=== PATIENT | female | born 1995 | race African-American/Black ===

== ENCOUNTER 2019-04-08 09:08 | Emergency (ER) | payer MEDICAID ==
[~2019-04-08] VITALS: Ht 175.3 cm; Wt 69.2 kg
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
[2019-04-08 10:17] LABS: BASOPHILS # (AUTO) 0.01 x10^3/uL (0-0.1); BASOPHILS % (AUTO) 0 % (0-1); EOSINOPHILS # (AUTO) 0.03 x10^3/uL (0-0.4); EOSINOPHILS % (AUTO) 1 % (1-7); LYMPHOCYTES # (AUTO) 1.63 x10^3/uL (1-3.4); LYMPHOCYTES % (AUTO) 40 % (22-44); MD NO; MEAN CORPUSCULAR HEMOGLOBIN 27.5 pg (27.0-34.8); MEAN CORPUSCULAR HGB CONC 32.4 g/dL (32.4-35.8); MEAN CORPUSCULAR VOLUME 84.9 fL (80-100); MEAN PLATELET VOLUME 9.2 fL (7.4-10.4); MONOCYTES # (AUTO) 0.37 x10^3/uL (0.2-0.8); MONOCYTES % (AUTO) 9 % (2-9); NEUTROPHILS # (AUTO) 1.99 x10^3/uL (1.8-6.8); NEUTROPHILS % (AUTO) 49 % (42-75); PLATELET COUNT 253 x10^3/uL (130-400); RED BLOOD COUNT 3.94 x10^6/uL (3.82-5.3); RED CELL DISTRIBUTION WIDTH 14.1 % (9.6-15.2)
[2019-04-08 10:23] LABS: ALBUMIN 2.9 g/dL (3.4-5.0); ANION GAP 5 mmol/L (5-15); CALCIUM 8.4 mg/dL (8.5-10.1); CHLORIDE 108 mmol/L (98-107); CREATININE 0.45 mg/dL (0.55-1.02)
--- NOTE | 2019-04-08 10:23 | NUR ---
pt to us
[2019-04-08 10:53] LABS: MICROSCOPIC NOT IND
[2019-04-08 10:57] LABS: CULTURE INDICATED? NO
--- NOTE | 2019-04-08 10:57 | NUR ---
MD AT BEDSIDE FOR PELVIC EXAM
[2019-04-08 11:01] VITALS: BP 100/54
--- NOTE | 2019-04-08 11:11 | NUR ---
PT GIVEN JUICE AND GRAHM CRACKERS
[2019-04-08 11:45] LABS: CLUE CELLS PRESENT (NONE SEEN); WET PREP WBCS MODERATE (FEW)
--- NOTE | 2019-04-08 12:19 | NUR ---
PT GIVEN RX AND DC PAPERWORK
== END 2019-04-08 12:21 | disposition home or self-care (01) ==
LOC: ED 11:55
DX: O23.592 Infection of other part of genital tract in pregnancy, second trimester (principal); B96.89 Other specified bacterial agents as the cause of diseases classified elsewhere; Z3A.15 15 weeks gestation of pregnancy
CPT/HCPCS: 36415; 76815; 80048; 81003; 82040; 84702; 85025; 87210; 87491; 87591; 87808; 99284

== ENCOUNTER 2019-04-17 09:39 | Emergency (ER) | payer MEDICAID ==
[~2019-04-17] VITALS: Ht 175.3 cm; Wt 68.0 kg
[2019-04-17 09:41] VITALS: BP 95/69
[2019-04-17] MEDS ORDERED: AZITHROMYCIN 500 MG TABLET PO ONE (10:30)
[2019-04-17] MEDS ORDERED: CEFTRIAXONE 250 MG IM ONE (10:30)
== END 2019-04-17 10:23 | disposition home or self-care (01) ==
LOC: ED 10:10
DX: O26.893 Other specified pregnancy related conditions, third trimester (principal); Z3A.18 18 weeks gestation of pregnancy
CPT/HCPCS: 96372; 99283; J0696

== ENCOUNTER 2019-05-09 19:50 | Outpatient (CLI) | payer MEDICAID ==
[~2019-05-09] VITALS: Ht 175.3 cm; Wt 77.2 kg
[2019-05-09 20:24] LABS: CULTURE INDICATED? YES; MICROSCOPIC INDICATED
[2019-05-09 20:29] LABS: AMPHETAMINE SCREEN, URINE Negative (Negative); BARBITURATE SCREEN, URINE Negative (Negative); BENZODIAZEPINE SCREEN, URINE Negative (Negative); CANNABINOID SCREEN, URINE Positive (Negative); COCAINE SCREEN, URINE Negative (Negative); METHADONE SCREEN, URINE Negative (Negative); OPIATE SCREEN, URINE Negative (Negative)
== END 2019-05-09 21:20 | disposition home or self-care (01) ==
LOC: LDOP 19:50
PROVIDERS: ATTEND Student in an Organized Health Care Education/Training Program
DX: O36.8120 Decreased fetal movements, second trimester, not applicable or unspecified (principal); Z3A.19 19 weeks gestation of pregnancy
CPT/HCPCS: 80307; 81001; 87086; 99211; G0463

== ENCOUNTER 2019-06-11 16:29 | Emergency (ER) | payer MEDICAID ==
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
== END 2019-06-11 16:43 ==
LOC: ED 16:37
DX: R68.89 Other general symptoms and signs (principal); Z53.21 Procedure and treatment not carried out due to patient leaving prior to being seen by health care provider

== ENCOUNTER 2019-06-23 12:21 | Outpatient (CLI) | payer MEDICAID ==
[~2019-06-23] VITALS: Ht 172.7 cm; Wt 77.2 kg
[2019-06-23 13:29] LABS: MICROSCOPIC INDICATED
[2019-06-23 13:30] LABS: AMPHETAMINE SCREEN, URINE Negative (Negative); BARBITURATE SCREEN, URINE Negative (Negative); BENZODIAZEPINE SCREEN, URINE Negative (Negative); CANNABINOID SCREEN, URINE Positive (Negative); COCAINE SCREEN, URINE Negative (Negative); METHADONE SCREEN, URINE Negative (Negative); OPIATE SCREEN, URINE Negative (Negative)
[2019-06-23 14:57] LABS: MEAN CORPUSCULAR HGB CONC 32.5 g/dL (32.4-35.8); MEAN CORPUSCULAR VOLUME 82.9 fL (80-100); MEAN PLATELET VOLUME 9.7 fL (7.4-10.4); PLATELET COUNT 291 x10^3/uL (130-400); RED BLOOD COUNT 4.08 x10^6/uL (3.82-5.3); RED CELL DISTRIBUTION WIDTH 13.8 % (9.6-15.2)
== END 2019-06-23 14:40 | disposition home or self-care (01) ==
LOC: LDOP 12:21
PROVIDERS: ATTEND Obstetrics & Gynecology
DX: O46.92 Antepartum hemorrhage, unspecified, second trimester (principal); Z3A.25 25 weeks gestation of pregnancy
CPT/HCPCS: 36415; 80307; 81001; 85027; 86592; 86762; 86850; 86900; 87086; 87340; 87806; 99211; G0463; G0475

== ENCOUNTER 2019-07-27 19:08 | Emergency (ER) | payer MEDICAID ==
[~2019-07-27] VITALS: Ht 175.3 cm; Wt 65.0 kg
[2019-07-27 19:27] VITALS: BP 97/63
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
--- NOTE | 2019-07-27 19:50 | NUR ---
CALLED TO L&D AND SPOKE WITH GRACIE MCGREGOR. PER MECHE MARSH STATES WE NEED TO ORDER AN US IN ED AND GO FROM THERE. PT. AMBULATORY TO X-RAY AT THIS TIME. Addendum: 07/27/19 at 2045 by JONES SPOKE WITH GRACIE LING (NOT MECHE)
[2019-07-27 20:07] LABS: RAPID INFLUENZA A Negative (Negative); RAPID INFLUENZA B Negative (Negative)
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
--- NOTE | 2019-07-27 21:05 | NUR ---
PT. BACK FROM US. TECH TRANSPORTING TO L&D, L&D AWARE.
== END 2019-07-27 21:07 | disposition home or self-care (01) ==
LOC: ED 21:00
DX: O99.513 Diseases of the respiratory system complicating pregnancy, third trimester (principal); R10.30 Lower abdominal pain, unspecified; Z3A.31 31 weeks gestation of pregnancy
CPT/HCPCS: 71046; 76815; 87400; 99285

== ENCOUNTER 2019-07-27 21:15 | Outpatient (CLI) | payer MEDICAID ==
[~2019-07-27] VITALS: Ht 175.3 cm; Wt 77.5 kg
[2019-07-27 22:18] LABS: MICROSCOPIC INDICATED
[2019-07-27 22:23] LABS: AMPHETAMINE SCREEN, URINE Negative (Negative); BARBITURATE SCREEN, URINE Negative (Negative); BENZODIAZEPINE SCREEN, URINE Negative (Negative); CANNABINOID SCREEN, URINE Negative (Negative); COCAINE SCREEN, URINE Negative (Negative); METHADONE SCREEN, URINE Negative (Negative); OPIATE SCREEN, URINE Negative (Negative)
== END 2019-07-27 23:00 | disposition home or self-care (01) ==
LOC: LDOP 21:15
PROVIDERS: ATTEND Obstetrics & Gynecology
DX: O26.892 Other specified pregnancy related conditions, second trimester (principal); R10.9 Unspecified abdominal pain; M54.5 Low back pain; Z3A.24 24 weeks gestation of pregnancy
CPT/HCPCS: 59025; 80307; 81001; 87086; 87491; 87591; 99211; G0463

== ENCOUNTER 2019-07-31 14:00 | Emergency (ER) | payer MEDICAID ==
[~2019-07-31] VITALS: Ht 175.3 cm; Wt 76.0 kg
[2019-07-31 14:06] VITALS: BP 90/39
== END 2019-07-31 14:40 | disposition home or self-care (01) ==
LOC: ED 14:22
DX: O26.891 Other specified pregnancy related conditions, first trimester (principal); J00 Acute nasopharyngitis [common cold]; R05 Cough; R51 Headache; Z3A.01 Less than 8 weeks gestation of pregnancy
CPT/HCPCS: 99282

== ENCOUNTER 2019-08-18 00:57 | Observation (INO) | payer MEDICAID ==
[~2019-08-18] VITALS: Ht 175.3 cm; Wt 82.0 kg
[2019-08-18] MEDS ORDERED: PENICILLIN GK 5,000,000 UNITS in DEXTROSE 5% 100 ML IV ONE (01:30)
[2019-08-18] MEDS ORDERED: TERBUTALINE 1 MG/ML, 1ML SQ ONE (01:30)
[2019-08-18] MEDS ORDERED: LACTATED RINGERS 1,000 ML IV SCH (01:30)
[2019-08-18] MEDS ORDERED: TERBUTALINE 1 MG/ML, 1ML ONE (01:32)
[2019-08-18 01:36] LABS: MICROSCOPIC INDICATED
[2019-08-18 01:42] LABS: AMPHETAMINE SCREEN, URINE Negative (Negative); BARBITURATE SCREEN, URINE Negative (Negative); BENZODIAZEPINE SCREEN, URINE Negative (Negative); CANNABINOID SCREEN, URINE Negative (Negative); COCAINE SCREEN, URINE Negative (Negative); METHADONE SCREEN, URINE Negative (Negative); OPIATE SCREEN, URINE Negative (Negative)
[2019-08-18] MEDS ORDERED: OXYTOCIN 30U/ 0.9% NaCL 500ML 500 ML IV ONE (02:09)
[2019-08-18] MEDS ORDERED: D5%-LACTATED RINGERS 1,000 ML IV SCH (02:09)
[2019-08-18] MEDS ORDERED: OXYTOCIN 30U/ 0.9% NaCL 500ML 500 ML ONE (02:09)
[2019-08-18] MEDS ORDERED: MISOPROSTOL 200 MCG TABLET ONE (02:10)
[2019-08-18] MEDS ORDERED: LIDOCAINE 1%, 20ML ONE (02:10)
[2019-08-18] MEDS ORDERED: TERBUTALINE 1 MG/ML, 1ML IVPush PRN (02:30)
[2019-08-18] MEDS ORDERED: FENTANYL PF 100 MCG/2ML IV PRN (02:30)
[2019-08-18] MEDS ORDERED: FENTANYL PF 100 MCG/2ML IVPush PRN (02:30)
[2019-08-18] MEDS ORDERED: CALCIUM CARBONATE 500 MG TAB.CHEW PO PRN (02:30)
[2019-08-18] MEDS ORDERED: ONDANSETRON 2MG/ML, 2ML IVPush PRN (02:30)
[2019-08-18] MEDS ORDERED: TERBUTALINE 1 MG/ML, 1ML SQ PRN (02:30)
[2019-08-18 02:49] LABS: MEAN CORPUSCULAR HGB CONC 31.9 g/dL (32.4-35.8); MEAN CORPUSCULAR VOLUME 81.6 fL (80-100); MEAN PLATELET VOLUME 10.9 fL (7.4-10.4); PLATELET COUNT 240 x10^3/uL (130-400); RED BLOOD COUNT 3.74 x10^6/uL (3.82-5.3); RED CELL DISTRIBUTION WIDTH 17.3 % (9.6-15.2)
[2019-08-18 02:57] LABS: ANISOCYTOSIS 1+; BASOPHILS # (AUTO) 0.06 x10^3/uL (0-0.1); BASOPHILS % (AUTO) 1 % (0-1); EOSINOPHILS # (AUTO) 0.04 x10^3/uL (0-0.4); EOSINOPHILS % (AUTO) 1 % (1-7); LYMPHOCYTES # (AUTO) 3.13 x10^3/uL (1-3.4); LYMPHOCYTES % (AUTO) 38 % (22-44); MD MORPH REVIEW ONLY; MONOCYTES # (AUTO) 0.77 x10^3/uL (0.2-0.8); MONOCYTES % (AUTO) 9 % (2-9); NEUTROPHILS # (AUTO) 4.26 x10^3/uL (1.8-6.8); NEUTROPHILS % (AUTO) 52 % (42-75); POLYCHROMASIA 1+
[2019-08-18 02:58] LABS: <PLATELET ESTIMATE> ADEQUATE; LARGE PLATELETS 1+
[2019-08-18] MEDS ORDERED: PENICILLIN GK 2,500,000 UNITS in DEXTROSE 5% 100 ML IVPB SCH (06:30)
[2019-08-18] MEDS ORDERED: BETAMETHASONE 6 MG/ML, 5ML IM ONE (08:13)
[2019-08-18] MEDS: BETAMETHASONE 6 MG/ML, 5ML IM SCH (08:25)
[2019-08-19] MEDS: BETAMETHASONE 6 MG/ML, 5ML IM SCH (07:35)
[2019-08-19] MEDS ORDERED: SODIUM CHLORIDE FLUSH 10ML SYR IVF SCH (09:00)
== END 2019-08-19 08:59 | disposition home or self-care (01) ==
LOC: LDOP 00:57 → INTOOBSV 02:13 → LDIP 02:13
PROVIDERS: ADMIT Obstetrics & Gynecology; ATTEND Obstetrics & Gynecology
DX: O60.03 Preterm labor without delivery, third trimester (principal); Z3A.35 35 weeks gestation of pregnancy
CPT/HCPCS: 36415; 80307; 81001; 85025; 86592; 86850; 86900; 87081; 87086; 96365; 96366; 96372; G0378; J0702; J2540; J3105; J7120

== ENCOUNTER 2020-06-14 12:50 | Emergency (ER) | payer MEDICAID ==
[~2020-06-14] VITALS: Ht 172.7 cm; Wt 77.5 kg
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
[2020-06-14] MEDS ORDERED: ACETAMINOPHEN 325 MG TABLET ONE (13:19)
[2020-06-14] MEDS ORDERED: LIDOCAINE-MPF 1%, 5ML ONE (13:19)
[2020-06-14 13:27] LABS: BASOPHILS % (AUTO) 0 % (0-1); EOSINOPHILS % (AUTO) 0 % (1-7); LYMPHOCYTES % (AUTO) 13 % (22-44); MEAN CORPUSCULAR HEMOGLOBIN 26.4 pg (27.0-34.8); MEAN CORPUSCULAR HGB CONC 33.3 g/dL (32.4-35.8); MEAN PLATELET VOLUME 8.9 fL (7.4-10.4); MONOCYTES % (AUTO) 5 % (2-9); NEUTROPHILS % (AUTO) 82 % (42-75); PLATELET COUNT 279 x10^3/uL (130-400); RED BLOOD COUNT 4.03 x10^6/uL (3.82-5.3); RED CELL DISTRIBUTION WIDTH 13.7 % (9.6-15.2)
[2020-06-14 13:29] LABS: MD NO
[2020-06-14 13:37] LABS: ALBUMIN 2.9 g/dL (3.4-5.0); ANION GAP 7 mmol/L (5-15); CALCIUM 8.8 mg/dL (8.5-10.1); CHLORIDE 109 mmol/L (98-107); CREATININE 0.43 mg/dL (0.55-1.02)
[2020-06-14] MEDS ORDERED: ACETAMINOPHEN 325 MG TABLET PO ONE (14:00)
[2020-06-14] MEDS ORDERED: LIDOCAINE-MPF 1%, 5ML INFIL ONE (14:00)
--- NOTE | 2020-06-14 14:23 | NUR ---
US AT BEDSIDE.
[2020-06-14 15:01] VITALS: BP 105/62
== END 2020-06-14 15:48 | disposition home or self-care (01) ==
LOC: ED 13:46
DX: O9A.211 Injury, poisoning and certain other consequences of external causes complicating pregnancy, first trimester (principal); S01.511A Laceration without foreign body of lip, initial encounter; Z3A.13 13 weeks gestation of pregnancy; Y04.8XXA Assault by other bodily force, initial encounter; Y93.89 Activity, other specified; Y92.89 Other specified places as the place of occurrence of the external cause; Y99.8 Other external cause status
CPT/HCPCS: 12011; 36415; 70486; 76801; 80048; 82040; 84702; 85025; 99285

== ENCOUNTER 2020-06-30 11:13 | Emergency (ER) | payer MEDICAID ==
[~2020-06-30] VITALS: Ht 175.3 cm; Wt 78.0 kg
[2020-06-30 11:23] VITALS: BP 118/66
--- NOTE | 2020-06-30 12:07 | NUR ---
Patient given discharge instructions and they have confirmed that they understand the instructions. Patient ambulatory with steady gait.
== END 2020-06-30 12:08 | disposition home or self-care (01) ==
LOC: ED 11:40
DX: S01.511D Laceration without foreign body of lip, subsequent encounter (principal); Z48.00 Encounter for change or removal of nonsurgical wound dressing; X58.XXXD Exposure to other specified factors, subsequent encounter
CPT/HCPCS: 99281

== ENCOUNTER 2020-10-09 18:18 | Emergency (ER) | payer MEDICAID ==
[~2020-10-09] VITALS: Ht 175.3 cm; Wt 86.0 kg
[2020-10-09 18:26] VITALS: BP 113/60
== END 2020-10-09 18:45 | disposition home or self-care (01) ==
LOC: ED 18:30
DX: B00.1 Herpesviral vesicular dermatitis (principal); R21 Rash and other nonspecific skin eruption
CPT/HCPCS: 99283

== ENCOUNTER 2020-11-07 12:53 | Outpatient (CLI) | payer MEDICAID ==
[~2020-11-07] VITALS: Ht 175.3 cm; Wt 79.0 kg
[2020-11-07 13:24] LABS: MICROSCOPIC INDICATED
[2020-11-07 13:32] LABS: AMPHETAMINE SCREEN, URINE Negative (Negative); BARBITURATE SCREEN, URINE Negative (Negative); BENZODIAZEPINE SCREEN, URINE Negative (Negative); CANNABINOID SCREEN, URINE Negative (Negative); COCAINE SCREEN, URINE Negative (Negative); METHADONE SCREEN, URINE Negative (Negative); OPIATE SCREEN, URINE Negative (Negative)
[2020-11-07 14:26] VITALS: BP 115/65
[2020-11-07] MEDS ORDERED: PLEASE ENTER HEIGHT AND WEIGHT MC SCH (14:30)
[2020-11-07] MEDS ORDERED: NITROFURANTOIN (MACROBID) 100 MG CAPSULE PO ONE (14:30)
[2020-11-07] MEDS ORDERED: NITROFURANTOIN (MACROBID) 100 MG CAPSULE ONE (14:49)
== END 2020-11-07 15:12 | disposition home or self-care (01) ==
LOC: LDOP 12:53
PROVIDERS: ATTEND Obstetrics & Gynecology
DX: O36.8130 Decreased fetal movements, third trimester, not applicable or unspecified (principal); Z3A.34 34 weeks gestation of pregnancy
CPT/HCPCS: 59025; 80307; 81001; 87086

== ENCOUNTER 2021-01-22 14:38 | Emergency (ER) | payer MEDICAID ==
[~2021-01-22] VITALS: Ht 175.3 cm; Wt 75.5 kg
--- NOTE | 2021-01-22 14:56 | NUR ---
NA from lobby at [phone]
[2021-01-22 14:59] VITALS: BP 122/71
--- NOTE | 2021-01-22 16:08 | NUR ---
PT DISCHARGED BY CLEO ROTHMAN
== END 2021-01-22 16:09 | disposition home or self-care (01) ==
LOC: ED 15:00
DX: A60.00 Herpesviral infection of urogenital system, unspecified (principal)
CPT/HCPCS: 99283